=== PATIENT | female | born 1945 | race African-American/Black ===

== ENCOUNTER 2020-08-30 12:54 | Emergency (ER) | payer MEDICARE, OTHER ==
[~2020-08-30] VITALS: Ht 160 cm; Wt 88.0 kg
[2020-08-30 14:00] VITALS: BP 174/72
== END 2020-08-30 14:51 | disposition home or self-care (01) ==
LOC: ER 12:54
DX: F41.8 Other specified anxiety disorders (principal); E11.9 Type 2 diabetes mellitus without complications; Z85.43 Personal history of malignant neoplasm of ovary; Z90.710 Acquired absence of both cervix and uterus; Z98.890 Other specified postprocedural states
CPT/HCPCS: 82962; 93005; 99283

== ENCOUNTER 2023-06-26 00:06 | Emergency (ER) | payer MEDICARE, OTHER ==
[~2023-06-26] VITALS: Ht 162.6 cm; Wt 82.0 kg
[~2023-06-26 00:06] MED LIST: GLIP10TA10 PO; METF-414 PO
[2023-06-26 01:04] VITALS: BP 120/32; O2SAT 100
[2023-06-26] MEDS ORDERED: ACETAMINOPHEN 325MG TABLET PO STA (06:29)
[2023-06-26 07:06] LABS: BASOPHILS % 0.6 % (0.0-2.0); EOSINOPHILS % 1.3 % (0.0-5.0); HEMOGLOBIN. 10.3 g/dL (12.0-16.0); LYMPHOCYTES % 17.7 % (20.0-50.0); MEAN CORPUSCULAR HEMOGLOBIN 30.7 pg (28.0-32.0); MEAN CORPUSCULAR HGB CONC 32.1 g/dL (31.0-37.0); MEAN CORPUSCULAR VOLUME 95.8 fL (81.0-99.0); MEAN PLATELET VOLUME 8.4 fl (7.4-10.4); MONOCYTES % 10.8 % (2.0-8.0); NEUTROPHILS % 69.6 % (40.0-76.0); PLATELET 274 x1000/uL (130-400); RED BLOOD CELL COUNT 3.35 mill/uL (4.2-5.4); RED CELL DISTRIBUTION WIDTH 13.7 % (11.6-14.6); WHITE BLOOD COUNT 3.8 x1000/uL (4.5-11.0)
[2023-06-26 07:16] LABS: INR 1.1; PROTHROMBIN TIME 11.3 sec (9.6-11.0)
[2023-06-26 07:22] LABS: ALANINE AMINOTRANSFERASE 17 IU/L (10-49); ALBUMIN 4.6 g/dL (3.2-4.8); ASPARTATE AMINOTRANSFERASE 20 IU/L (<34); BILIRUBIN TOTAL 0.3 mg/dL (0.1-1.0); CALCIUM 10.3 mg/dL (8.7-10.4); CARBON DIOXIDE 24 mEq/L (21-32); CHLORIDE 105 mEq/L (98-107); CREATININE 1.3 mg/dL (0.6-1.0); GLUCOSE 51 mg/dL (70-105); POTASSIUM 4.1 mEq/L (3.5-5.1); PROTEIN TOTAL 8.3 g/dL (6.0-8.3); SODIUM 140 mEq/L (136-145); UREA NITROGEN BLOOD 47 mg/dL (9-23)
[2023-06-26] MEDS ORDERED: ACET-2708 MT (09:36)
[2023-06-26 10:45] VITALS: PULSE 78; RESP 18; TEMP 98.1
== END 2023-06-26 10:46 | disposition home or self-care (01) ==
LOC: ER 00:06
DX: M71.21 Synovial cyst of popliteal space [Baker], right knee (principal); M79.605 Pain in left leg; E11.9 Type 2 diabetes mellitus without complications
CPT/HCPCS: 36415; 71045; 80053; 85025; 93971; 99284

== ENCOUNTER 2023-10-04 19:59 | Emergency (ER) | payer OTHER ==
[~2023-10-04] VITALS: Ht 157.5 cm; Wt 69.0 kg
[~2023-10-04 19:59] MED LIST changes: +ACET-2708 MT
[2023-10-04 20:14] VITALS: O2SAT 100
[2023-10-04] MEDS ORDERED: ACETAMINOPHEN 500MG TABLET PO ONE (22:45)
[2023-10-04 23:21] LABS: BASOPHILS % 0.3 % (0.0-2.0); EOSINOPHILS % 0.6 % (0.0-5.0); HEMATOCRIT. 29.4 % (36.0-48.0); HEMOGLOBIN. 9.6 g/dL (12.0-16.0); LYMPHOCYTES % 13.5 % (20.0-50.0); MEAN CORPUSCULAR HEMOGLOBIN 31.5 pg (28.0-32.0); MEAN CORPUSCULAR HGB CONC 32.7 g/dL (31.0-37.0); MEAN CORPUSCULAR VOLUME 96.3 fL (81.0-99.0); MEAN PLATELET VOLUME 6.7 fl (7.4-10.4); NEUTROPHILS % 72.6 % (40.0-76.0); PLATELET 304 x1000/uL (130-400); RED BLOOD CELL COUNT 3.06 mill/uL (4.2-5.4); RED CELL DISTRIBUTION WIDTH 16.6 % (11.6-14.6)
[2023-10-04 23:35] LABS: ALANINE AMINOTRANSFERASE 26 IU/L (10-49); ALBUMIN 4.5 g/dL (3.2-4.8); ASPARTATE AMINOTRANSFERASE 27 IU/L (<34); BILIRUBIN TOTAL 0.2 mg/dL (0.1-1.0); CALCIUM 9.4 mg/dL (8.7-10.4); CARBON DIOXIDE 22 mEq/L (21-32); CHLORIDE 108 mEq/L (98-107); CREATININE 1.2 mg/dL (0.6-1.0); GLUCOSE 72 mg/dL (70-105); POTASSIUM 3.9 mEq/L (3.5-5.1); PROTEIN TOTAL 7.7 g/dL (6.0-8.3); SODIUM 139 mEq/L (136-145); UREA NITROGEN BLOOD 13 mg/dL (9-23)
[2023-10-05 02:20] VITALS: BP 57/68; PULSE 92; RESP 14; TEMP 97.8
[2023-10-05] MEDS: ACETAMINOPHEN 500MG TABLET PO NR (02:37)
== END 2023-10-05 02:30 | disposition home or self-care (01) ==
LOC: ER 20:11
DX: R60.9 Edema, unspecified (principal); F15.10 Other stimulant abuse, uncomplicated; E11.9 Type 2 diabetes mellitus without complications; E78.00 Pure hypercholesterolemia, unspecified; I10 Essential (primary) hypertension; Z90.710 Acquired absence of both cervix and uterus
CPT/HCPCS: 36415; 71045; 80053; 85025; 93970; 99284

== ENCOUNTER 2023-11-03 06:57 | Emergency (ER) | payer OTHER ==
[~2023-11-03] VITALS: Ht 157.5 cm; Wt 72.6 kg
[2023-11-03 07:33] VITALS: O2SAT 100
[2023-11-03 08:08] LABS: BASOPHILS % 0.1 % (0.0-2.0); EOSINOPHILS % 0.2 % (0.0-5.0); HEMATOCRIT. 27.7 % (36.0-48.0); LYMPHOCYTES % 7.1 % (20.0-50.0); MEAN CORPUSCULAR HGB CONC 32.6 g/dL (31.0-37.0); MEAN PLATELET VOLUME 7.8 fl (7.4-10.4); MONOCYTES % 8.8 % (2.0-8.0); NEUTROPHILS % 83.8 % (40.0-76.0); PLATELET 356 x1000/uL (130-400); RED BLOOD CELL COUNT 3.01 mill/uL (4.2-5.4); RED CELL DISTRIBUTION WIDTH 16.9 % (11.6-14.6); WHITE BLOOD COUNT 6.3 x1000/uL (4.5-11.0)
[2023-11-03 08:25] LABS: CARBON DIOXIDE 29 mEq/L (21-32); CHLORIDE 100 mEq/L (98-107); POTASSIUM 4.5 mEq/L (3.5-5.1); SODIUM 135 mEq/L (136-145)
[2023-11-03 08:26] LABS: CALCIUM 9.9 mg/dL (8.7-10.4)
[2023-11-03 08:31] LABS: CREATININE 1.4 mg/dL (0.6-1.0); GLUCOSE 204 mg/dL (70-105); UREA NITROGEN BLOOD 34 mg/dL (9-23)
[2023-11-03 08:32] LABS: ALANINE AMINOTRANSFERASE 18 IU/L (10-49); ASPARTATE AMINOTRANSFERASE 21 IU/L (<34)
[2023-11-03 08:33] LABS: ALBUMIN 4.8 g/dL (3.2-4.8); BILIRUBIN TOTAL 0.2 mg/dL (0.1-1.0); PROTEIN TOTAL 8.1 g/dL (6.0-8.3)
[2023-11-03] MEDS: FUROSEMIDE 40MG/4ML VIAL IVP ONE (10:35)
[2023-11-03] MEDS ORDERED: DICL100G58 TP (12:35)
[2023-11-03 13:22] VITALS: BP 146/58; PULSE 92; RESP 14; TEMP 98.5
== END 2023-11-03 13:37 | disposition home or self-care (01) ==
LOC: ER 06:57
DX: M79.604 Pain in right leg (principal); M79.605 Pain in left leg; M71.22 Synovial cyst of popliteal space [Baker], left knee; M71.21 Synovial cyst of popliteal space [Baker], right knee; E11.9 Type 2 diabetes mellitus without complications; E78.00 Pure hypercholesterolemia, unspecified; F15.10 Other stimulant abuse, uncomplicated; I10 Essential (primary) hypertension; Z85.9 Personal history of malignant neoplasm, unspecified
CPT/HCPCS: 99285; 96374; 71045; 80053; 83880; 85025; 36415; 93005; J1940

== ENCOUNTER 2024-01-05 13:30 | Inpatient (IN) | payer OTHER, MEDICARE ==
[~2024-01-05] VITALS: Ht 152.4 cm; Wt 69.4 kg
[~2024-01-05 13:30] MED LIST changes: +DICL100G58 TP
[2024-01-05 15:17] LABS: BASOPHILS % 0.5 % (0.0-2.0); EOSINOPHILS % 0.6 % (0.0-5.0); HEMATOCRIT. 30.4 % (36.0-48.0); LYMPHOCYTES % 8.8 % (20.0-50.0); MEAN CORPUSCULAR HEMOGLOBIN 29.5 pg (28.0-32.0); MEAN CORPUSCULAR HGB CONC 32.9 g/dL (31.0-37.0); MEAN CORPUSCULAR VOLUME 89.9 fL (81.0-99.0); MONOCYTES % 6.6 % (2.0-8.0); NEUTROPHILS % 83.5 % (40.0-76.0); PLATELET 437 x1000/uL (130-400); RED BLOOD CELL COUNT 3.38 mill/uL (4.2-5.4); RED CELL DISTRIBUTION WIDTH 17.2 % (11.6-14.6); WHITE BLOOD COUNT 4.8 x1000/uL (4.5-11.0)
[2024-01-05 15:40] LABS: POTASSIUM 4.5 mEq/L (3.5-5.1)
[2024-01-05 15:41] LABS: CALCIUM 10.5 mg/dL (8.7-10.4)
[2024-01-05 15:46] LABS: CREATININE 1.6 mg/dL (0.6-1.0)
[2024-01-05] MEDS: ACETAMINOPHEN 325MG TABLET PO ONE (17:32)
[2024-01-05] MEDS: LIDOCAINE 5% PATCH TOP SCH (18:04)
[2024-01-05] MEDS: MORPHINE SULFATE 2 MG/ML INJ (NOT FOR IM USE) IV PRN (23:15)
[2024-01-06] VITALS (7 sets, daily range): BP systolic 114–166; BP diastolic 50–90; PULSE 71–92; RESP 18–20; TEMP 97.5–99.2
[2024-01-06] MEDS: PANTOPRAZOLE SODIUM 40 MG/VIAL IV SCH (09:45)
[2024-01-06] MEDS ORDERED: DEXTROSE 50% WATER 50ML SYRINGE IV PRN (09:45)
[2024-01-06] MEDS ORDERED: IPRATROPIUM/ALBUTEROL 0.5-3(2.5)MG/3ML NEB HHN PRN (09:45)
[2024-01-06] MEDS ORDERED: CLONIDINE 0.1MG TABLET PO PRN (09:45)
[2024-01-06] MEDS ORDERED: ONDANSETRON HCL 4MG/2ML INJ IV PRN (09:45)
[2024-01-06] MEDS ORDERED: ACETAMINOPHEN 325MG TABLET PO PRN (09:45)
[2024-01-06] MEDS: INSULIN LISPRO 100 UNITS/ML SUBCUT SCH (11:59)
[2024-01-06] MEDS: BLOOD SUGAR DIAGNOSTIC STRIP TEST SCH (11:59)
[2024-01-06] MEDS: AMLODIPINE 10MG TABLET PO SCH (12:00)
[2024-01-06 13:23] LABS: BASOPHILS % 0.7 % (0.0-2.0); EOSINOPHILS % 1.1 % (0.0-5.0); HEMOGLOBIN. 8.3 g/dL (12.0-16.0); LYMPHOCYTES % 12.2 % (20.0-50.0); MEAN CORPUSCULAR HEMOGLOBIN 28.9 pg (28.0-32.0); MEAN CORPUSCULAR HGB CONC 31.8 g/dL (31.0-37.0); MEAN CORPUSCULAR VOLUME 90.9 fL (81.0-99.0); MEAN PLATELET VOLUME 7.8 fl (7.4-10.4); PLATELET 354 x1000/uL (130-400); RED BLOOD CELL COUNT 2.86 mill/uL (4.2-5.4); RED CELL DISTRIBUTION WIDTH 16.9 % (11.6-14.6); WHITE BLOOD COUNT 3.9 x1000/uL (4.5-11.0)
[2024-01-06 13:34] LABS: CHLORIDE 100 mEq/L (98-107); POTASSIUM 4.4 mEq/L (3.5-5.1); SODIUM 135 mEq/L (136-145)
[2024-01-06 13:35] LABS: CALCIUM 9.9 mg/dL (8.7-10.4); CARBON DIOXIDE 27 mEq/L (21-32)
[2024-01-06 13:39] LABS: IRON 28 ug/dL (50-170)
[2024-01-06 13:40] LABS: CREATININE 1.4 mg/dL (0.6-1.0); GLUCOSE 281 mg/dL (70-105); TRIGLYCERIDE 112 mg/dL (0-150); UREA NITROGEN BLOOD 25 mg/dL (9-23)
[2024-01-06 13:41] LABS: LDL CHOLESTEROL 85 mg/dL (5-100)
[2024-01-06 13:42] LABS: ALANINE AMINOTRANSFERASE 9 IU/L (10-49); ALBUMIN 4.5 g/dL (3.2-4.8); ASPARTATE AMINOTRANSFERASE 13 IU/L (<34); BILIRUBIN TOTAL 0.2 mg/dL (0.1-1.0); CHOLESTEROL 162 mg/dL (<200); CREATINE KINASE 40 IU/L (34-145); HDL CHOLESTEROL 52 mg/dL (>65); PROTEIN TOTAL 7.1 g/dL (6.0-8.3); TOTAL IRON BINDING CAPACITY 321 ug/dl (250-425)
[2024-01-06 13:44] LABS: FOLIC ACID (FOLATE) SERUM 8.92 ng/mL (>5.38)
[2024-01-06 13:45] LABS: BILIRUBIN DIRECT < 0.1 mg/dL (<=3.0); FERRITIN 139 ng/mL (10-291); PROTHROMBIN TIME 10.8 sec (9.6-11.0); VITAMIN B12 SERUM 433 pg/mL (211-911)
[2024-01-06 18:01] LABS: CLARITY URINE CLEAR (CLEAR); COLOR URINE YELLOW (YELLOW); GLUCOSE URINE 2+ (NEGATIVE); KETONES URINE NEGATIVE (NEGATIVE); LEUKOCYTE ESTERASE URINE NEGATIVE (NEGATIVE); NITRITE URINE NEGATIVE (NEGATIVE); OCCULT BLOOD URINE NEGATIVE (NEGATIVE); PH URINE 6.5 (4.5-8.0); PROTEIN URINE TRACE (NEGATIVE); SPECIFIC GRAVITY URINE 1.017 (1.005-1.030); UROBILINOGEN URINE 0.2 E.U./dL (0.2-1.0)
[2024-01-06 18:10] LABS: *AMPHETAMINES SCREEN URINE NEGATIVE (NEGATIVE); *BARBITURATES SCREEN URINE NEGATIVE (NEGATIVE); *BENZODIAZEPINES SCREEN URINE NEGATIVE (NEGATIVE); *COCAINE SCREEN URINE NEGATIVE (NEGATIVE); CANNABINOID URINE SCREEN NEGATIVE (NEGATIVE); ECSTASY MDMA SCREEN URINE NEGATIVE (NEGATIVE); METHADONE URINE SCREEN NEGATIVE (NEGATIVE); OPIATES URINE SCREEN PRESUMPTIVE POSITIVE (NEGATIVE); PHENCYCLIDINE URINE SCREEN NEGATIVE (NEGATIVE)
[2024-01-06 18:12] LABS: BACTERIA URINE NONE SEEN; RBC URINE 0-2 /hpf (0-2); SQUAMOUS EPITHELIAL CELL URINE 1+ /lpf (RARE/1+); WBC URINE 0-2 /hpf (0-2)
[2024-01-06] MEDS: ACETAMINOPHEN 325MG TABLET PO PRN (21:48)
[2024-01-07] VITALS: BP 122/53; PULSE 85; RESP 18; TEMP 98.4
[2024-01-07 04:00] VITALS: BP 147/65; PULSE 82; RESP 19; TEMP 98.7
[2024-01-07 04:58] LABS: CALCIUM 9.6 mg/dL (8.7-10.4)
[2024-01-07 05:02] LABS: CREATININE 1.3 mg/dL (0.6-1.0)
[2024-01-07 06:09] LABS: BASOPHILS % 0.6 % (0.0-2.0); EOSINOPHILS % 1.4 % (0.0-5.0); HEMATOCRIT. 22.9 % (36.0-48.0); HEMOGLOBIN. 7.3 g/dL (12.0-16.0); MEAN CORPUSCULAR HEMOGLOBIN 28.9 pg (28.0-32.0); MEAN CORPUSCULAR VOLUME 90.3 fL (81.0-99.0); MEAN PLATELET VOLUME 7.3 fl (7.4-10.4); MONOCYTES % 12.9 % (2.0-8.0); NEUTROPHILS % 71.1 % (40.0-76.0); PLATELET 340 x1000/uL (130-400); RED BLOOD CELL COUNT 2.54 mill/uL (4.2-5.4); RED CELL DISTRIBUTION WIDTH 16.8 % (11.6-14.6); WHITE BLOOD COUNT 3.3 x1000/uL (4.5-11.0)
[2024-01-07 08:00] VITALS: BP 124/48; PULSE 87; RESP 20; TEMP 97.7
[2024-01-07] MEDS ORDERED: LACTULOSE 20G/30ML UDC PO PRN (08:45)
[2024-01-07] MEDS: NA PHOS,M-B/NA PHOS,DI-BA ENEMA 118ML PR NR (09:22)
[2024-01-07] MEDS: DOCUSATE SODIUM 100MG CAPSULE PO PRN (09:54)
[2024-01-07 12:00] VITALS: BP 142/50; PULSE 59; RESP 19; TEMP 98.1
[2024-01-07] MEDS: FERROUS SULFATE 325MG TABLET PO SCH (12:17)
[2024-01-07] MEDS ORDERED: NALOXONE HCL 0.4MG/ML VIAL IV PRN (15:30)
[2024-01-07 16:00] VITALS: BP 132/40; PULSE 90; RESP 20; TEMP 97.7
[2024-01-07 20:00] VITALS: BP 122/68; PULSE 97; RESP 18; TEMP 98.7
[2024-01-08] VITALS: BP 108/61; PULSE 61; RESP 20; TEMP 98.6
[2024-01-08 08:00] VITALS: BP 143/56; PULSE 78; RESP 18; TEMP 97.7
[2024-01-08 12:00] VITALS: BP 151/62; PULSE 85; RESP 19; TEMP 98.1
[2024-01-08 15:41] VITALS: BP 151/62; PULSE 85; TEMP 98; O2SAT 95
[2024-01-08 16:00] VITALS: BP 130/50; PULSE 83; RESP 17; TEMP 98
[2024-01-08] MEDS ORDERED: HYDROCODONE/ACETAMINOPHEN 7.5/325MG TABLET PO PRN (16:00)
[2024-01-08] MEDS: DOCUSATE SODIUM 100MG CAPSULE PO SCH (17:21)
== END 2024-01-08 21:00 | disposition hospice, home (50) | DRG 552 ==
LOC: ER 13:30 → 6EST 18:52 → EDBEDREQTM 19:07 → EDBEDREQ 19:07
PROVIDERS: ADMIT Internal Medicine; ATTEND Internal Medicine
DX: M54.50 Low back pain, unspecified (principal); I12.9 Hypertensive chronic kidney disease with stage 1 through stage 4 chronic kidney disease, or unspecified chronic kidney disease; N18.9 Chronic kidney disease, unspecified; D64.9 Anemia, unspecified; E11.22 Type 2 diabetes mellitus with diabetic chronic kidney disease; R59.0 Localized enlarged lymph nodes; E78.00 Pure hypercholesterolemia, unspecified; Z51.5 Encounter for palliative care; N13.9 Obstructive and reflux uropathy, unspecified; Z85.42 Personal history of malignant neoplasm of other parts of uterus; Z86.718 Personal history of other venous thrombosis and embolism; Z90.710 Acquired absence of both cervix and uterus; Z79.899 Other long term (current) drug therapy
CPT/HCPCS: 36415; 74176; 80048; 80061; 80076; 80305; 81003; 82550; 82607; 82728; 82746; 82962; 83036; 83540; 83550; 85025; 93005; 93971; 99291; J1815; J2270; J2470